=== PATIENT | male | born 1975 | race Two or more races ===

== ENCOUNTER 2017-11-23 10:41 | Inpatient (IN) | payer OTHER ==
[~2017-11-23] VITALS: Ht 175.3 cm; Wt 94.8 kg
[2017-11-23 10:45] VITALS: Ht 175.3 cm; Wt 94.8 kg
[2017-11-23 11:40] LABS: BASOPHIL % 0.4 % (0-2); PLATELET COUNT 204 x10^3mcL (130-400)
[2017-11-23 11:43] LABS: RED CELL DISTRIBUTION WIDTH 14.9 % (11.5-14.5)
[2017-11-23 11:45] LABS: CALCIUM 9.3 mg/dL (8.5-10.1); CARBON DIOXIDE 28.8 mmol/L (21-32); CHLORIDE SERUM 100 mmol/L (98-107); CREATININE SERUM 1.2 mg/dL (0.7-1.3); GFR1 > 60 mL/min; GLUCOSE SERUM 154 mg/dL (74-106); POTASSIUM SERUM 4.2 mmol/L (3.5-5.1); SODIUM SERUM 136 mmol/L (136-145)
[2017-11-23] MEDS ORDERED: LOSARTAN POTASS25 M1 PO (12:55)
[2017-11-23] MEDS ORDERED: METFORMIN HYDR500 M1 (12:55)
[2017-11-23 13:50] LABS: CALCIUM 9.3 mg/dL (8.5-10.1); CARBON DIOXIDE 27.3 mmol/L (21-32); CHLORIDE SERUM 100 mmol/L (98-107); CREATININE SERUM 1.2 mg/dL (0.7-1.3); GFR1 > 60 mL/min; GLUCOSE SERUM 154 mg/dL (74-106); POTASSIUM SERUM 4.2 mmol/L (3.5-5.1); SODIUM SERUM 136 mmol/L (136-145)
[2017-11-23 13:54] VITALS: BP 149/94
[2017-11-23 13:54] LABS: ALKALINE PHOSPHATASE 82 U/L (46-116); ALT/SGPT 35 U/L (16-63); AST/SGOT 14 U/L (15-37); BILIRUBIN TOTAL 0.3 mg/dL (0.20-1.00); TOTAL PROTEIN, SERUM 7.7 g/dL (6.4-8.2)
[2017-11-23 13:59] LABS: T3 TOTAL 1.24 ng/mL
[2017-11-23 14:04] LABS: FREE T4 1.23 ng/dL (0.76-1.46); FREE THYROXINE INDEX 2.8 ug/dL (1.4-4.5); T4(THYROXINE) 7.9 ug/dL (4.7-13.3)
[2017-11-23 14:36] LABS: MAGNESIUM 1.9 mg/dL (1.8-2.4); PHOSPHOROUS 2.4 mg/dL (2.5-4.9)
[2017-11-23 14:41] LABS: CHOLESTEROL/HDL RATIO 5.5
[2017-11-23 17:35] VITALS: BP 131/79
[2017-11-23 20:53] VITALS: BP 135/86
[2017-11-23 21:05] LABS: microscopic required? NO
[2017-11-23 21:14] LABS: UA SPECIFIC GRAVITY 1.015 (1.005-1.035); urine erythrocyte NEGATIVE (NEGATIVE)
[2017-11-23 21:23] LABS: AMPHETAMINE QUAL UR NONE DETECTED
[2017-11-24 03:04] LABS: BASOPHIL % 0.4 % (0-2); PLATELET COUNT 188 x10^3mcL (130-400)
[2017-11-24 03:10] LABS: RED CELL DISTRIBUTION WIDTH 15.1 % (11.5-14.5)
[2017-11-24 03:24] LABS: RED BLOOD CELLS 5.93 M/mm3 (4.52-5.90)
[2017-11-24 03:39] LABS: CALCIUM 8.2 mg/dL (8.5-10.1); CARBON DIOXIDE 27.9 mmol/L (21-32); CHLORIDE SERUM 105 mmol/L (98-107); CREATININE SERUM 0.9 mg/dL (0.7-1.3); GFR1 > 60 mL/min; GLUCOSE SERUM 103 mg/dL (74-106); PHOSPHOROUS 3.2 mg/dL (2.5-4.9); POTASSIUM SERUM 4.2 mmol/L (3.5-5.1); SODIUM SERUM 138 mmol/L (136-145)
[2017-11-24 03:40] LABS: IRON 109 ug/dL (65-170); TOTAL IRON BINDING CAPACITY 286 ug/dL (250-450)
[2017-11-24 05:26] VITALS: BP 147/99
[2017-11-24 09:29] VITALS: BP 141/68
[2017-11-24] MEDS ORDERED: METFORMIN HCL850 MG PO (09:45)
[2017-11-24] MEDS ORDERED: HYD1C TOP (09:46)
[2017-11-24] MEDS ORDERED: LIPI10 PO (10:15)
[2017-11-24] MEDS ORDERED: HYDROCHLOROTH12.5 M2 PO (10:16)
== END 2017-11-24 14:45 | disposition home or self-care (01) | DRG 206 ==
LOC: ED 10:41 → DU 12:43
PROVIDERS: Emergency Medicine; Student in an Organized Health Care Education/Training Program
DX: M94.0 Chondrocostal junction syndrome [Tietze] (principal); I10 Essential (primary) hypertension; F17.210 Nicotine dependence, cigarettes, uncomplicated; E11.65 Type 2 diabetes mellitus with hyperglycemia; E83.39 Other disorders of phosphorus metabolism; E78.5 Hyperlipidemia, unspecified; D64.9 Anemia, unspecified; Z88.6 Allergy status to analgesic agent; Z79.84 Long term (current) use of oral hypoglycemic drugs; Z83.3 Family history of diabetes mellitus
CPT/HCPCS: 82962; 83880; 84439; 85378; C9113; J3010; J3475; J7030; J7040; Q0092

== ENCOUNTER 2017-12-04 09:31 | Emergency (ER) | payer OTHER ==
[~2017-12-04] VITALS: Ht 177.8 cm; Wt 92.5 kg
[~2017-12-04 09:31] MED LIST: HYD1C TOP; HYDROCHLOROTH12.5 M2 PO; LIPI10 PO; LOSARTAN POTASS25 M1 PO; METFORMIN HCL850 MG PO; METFORMIN HYDR500 M1
[2017-12-04 09:37] VITALS: Ht 177.8 cm; Wt 92.5 kg
[2017-12-04 10:27] LABS: microscopic required? NO
[2017-12-04 10:28] LABS: BASOPHIL % 0.2 % (0-2); PLATELET COUNT 194 x10^3mcL (130-400); RED CELL DISTRIBUTION WIDTH 14.5 % (11.5-14.5)
[2017-12-04 10:29] LABS: rbc morphology (normal/abnorm) ABNORMAL (NORMAL)
[2017-12-04 10:43] LABS: CALCIUM 9.1 mg/dL (8.5-10.1); CARBON DIOXIDE 26.6 mmol/L (21-32); CHLORIDE SERUM 99 mmol/L (98-107); CREATININE SERUM 1.3 mg/dL (0.7-1.3); GFR1 > 60 mL/min; GLUCOSE SERUM 171 mg/dL (74-106); POTASSIUM SERUM 4.1 mmol/L (3.5-5.1); SODIUM SERUM 137 mmol/L (136-145)
[2017-12-04 10:47] LABS: UA SPECIFIC GRAVITY 1.015 (1.005-1.035); urine erythrocyte NEGATIVE (NEGATIVE)
[2017-12-04 10:55] LABS: ALBUMIN 4.2 g/dL (3.4-5.0); ALKALINE PHOSPHATASE 97 U/L (46-116); ALT/SGPT 38 U/L (16-63); AMYLASE 81 U/L (25-115); AST/SGOT 16 U/L (15-37); BILIRUBIN TOTAL 0.4 mg/dL (0.20-1.00); HDL CHOLESTEROL 38 mg/dL (40-60); LIPASE 136 IU/L (73-393); T4(THYROXINE) 8.9 ug/dL (4.7-13.3)
[2017-12-04 10:55] LABS: AMPHETAMINE QUAL UR NONE DETECTED (See below)
[2017-12-04 11:07] LABS: CHOLESTEROL 133 mg/dL (<200)
[2017-12-04 12:12] VITALS: BP 132/71
== END 2017-12-04 12:12 | disposition home or self-care (01) ==
LOC: ED 09:31
PROVIDERS: Emergency Medicine
DX: R00.2 Palpitations (principal); E11.9 Type 2 diabetes mellitus without complications; I10 Essential (primary) hypertension; E78.00 Pure hypercholesterolemia, unspecified; R21 Rash and other nonspecific skin eruption
CPT/HCPCS: 83880; J2060; Q0092